=== PATIENT | male | born 1935 | race Caucasian/White ===

== ENCOUNTER 2018-06-27 09:53 | Inpatient (IN) | payer MEDICARE, BC ==
[~2018-06-27] VITALS: Ht 172.8 cm; Wt 91.0 kg
[~2018-06-27 09:53] MED LIST: COLESTID 1GM1 G PO; COUMADIN 22.5 MG/TAB PO; COUMADIN 5MG5 MG/TAB PO; FISH OIL500 MG PO; TAMBOCOR50 MG PO; [UNRECOGNIZED DRUG - REMARK]
[2018-07-14] VITALS (10 sets, daily range): BP systolic 105–160; BP diastolic 54–78; PULSE 60–86; TEMP 97–99.1
--- NOTE | 2018-07-14 06:11 | NUR ---
PT PREPPED FOR SURGERY. ADMITTED AMBULATORY TO ROOM 329. VSS, PATIENT TO SURGERY PER BED WITH
[2018-07-14 06:33] LABS: INR 1.1 (0.8-3.0); PROTHROMBIN TIME 12.5 SECONDS (9.7-12.8)
--- NOTE | 2018-07-14 11:38 | NUR ---
PATIENT TO ROOM 329 PER BED WITH REPORTFRMARGI WHALEN EXECUTOR OF ESTATE @1125. PT IS DROWSEY BUT AROUSEABLE. VSS LUNGS CLEAR. DRESSING TO LEFT HIP CDI WITH GAUZE AND MEDIPORE TAPE OVER INCISIOON. IV TO PUMP, SCDS AND TEDS BILATERALLY. PT DENIES PAIN.
--- NOTE | 2018-07-14 14:03 | NUR ---
SW met with patient, , and daughter about discharge planning. Patient lives independently at home with his and plans to return there upon discharge. Patient plans to receive outpatient PT in [place]. Patient's PCP is Dr Smith and he obtains prescriptions from the [place] or [facility]. Patient does not use any home health services or DME in the home. Patient will be seen by PT and OT. SW will review PT and OT notes for recommendations. SW will continue to follow and assist with discharge needs.
--- NOTE | 2018-07-14 15:45 | NUR ---
PT UP TO RECLINER WITH THERAPY THIS PM. BACK TO BED WITH SBA X1. PO PAIN MEDS AND 1 DOSE MORPHINE FOR PAIN CONTROLL, HAS BEEN SLEEPING THIS PM.
--- NOTE | 2018-07-14 19:05 | NUR ---
REPORT TO CALLUM VELEZ.
--- NOTE | 2018-07-14 21:00 | NUR ---
HS meds all reviewed and given along with norco for pain. Patient awake, alert and oriented x 4. Reports he feels like he can urinate. Up to the bathroom min 1 assist with chef kitchen manager and voids minimal amount. Bladder scan reads >200mls and moderate area of shading noted on scanner. Straight cath reviewed and done via sterile procedure without problems with 325mls slow yellow clear urine results. Fe care done before and after straight cath. Teds removed and reapplied.
--- NOTE | 2018-07-14 23:00 | NUR ---
Patient reports just achy pain now to left hip 5/10 and roxycodone 5mg given with jellow.
--- NOTE | 2018-07-15 00:30 | NUR ---
Patient rests with eyes closed. Respirations with ease.
--- NOTE | 2018-07-15 02:00 | NUR ---
Patient rests with eyes closed. Respirations with ease.
[2018-07-15 03:46] VITALS: BP 150/76; PULSE 91; TEMP 98.1
--- NOTE | 2018-07-15 05:38 | NUR ---
ENCOURAGED PATIENT TO GET UP TO THE BATHROOM ONCE PAIN MED TAKES EFFECT. REQUESTS ADDITIONAL PAIN MED AND ROXYCODONE 5MG GIVEN. NEW ICE PACK TO LEFT HIP.
[2018-07-15 07:28] LABS: HEMATOCRIT 38.7 % (42.0-52.0); HEMOGLOBIN 12.7 g/dl (13.5-18.0)
[2018-07-15 07:30] LABS: INR 1.2 (0.8-3.0); PROTHROMBIN TIME 13.7 SECONDS (9.7-12.8)
[2018-07-15 08:10] VITALS: BP 138/62; PULSE 82; TEMP 97.6
--- NOTE | 2018-07-15 10:45 | NUR ---
Initial visit; Patient thanked Avian Keeper for looking in on him and offering God's blessings.
[2018-07-15 12:06] VITALS: BP 149/67; PULSE 77; TEMP 98.3
[2018-07-15 16:13] VITALS: BP 150/66; PULSE 85; TEMP 97.4
--- NOTE | 2018-07-15 19:10 | NUR ---
Report received from Whit VELEZ. Patient sits up in recliner leg elevated. Several visitors in. Patient denies needs a this time.
[2018-07-15 20:45] VITALS: BP 171/67; PULSE 97; TEMP 98.8
--- NOTE | 2018-07-15 21:40 | NUR ---
HS meds along with norco for pain reviewed and given with mariama. Denies nausea at this time. Rests back in bed. Was up tonight and walked to the bathroom. BLE elevated on pillows. Ice back to left hip and aquacel CDI. SCD's on. Teds removed and reapplied.
[2018-07-15 23:16] VITALS: BP 138/74; PULSE 94; TEMP 199; TEMP 99
--- NOTE | 2018-07-16 01:31 | NUR ---
Patient required max assist with legs in and out of bed. Bed raised slightly to assist with standing. Ambulates to the bathroom and voids large amount clear yellow urine in urinal. Takes jello prior to roxycodone given for pain.
[2018-07-16 03:33] VITALS: BP 131/60; PULSE 91; TEMP 99.5
--- NOTE | 2018-07-16 05:04 | NUR ---
PATIENT RESTS WITH EYES CLOSED. RESPIRATIONS WITH EASE.
--- NOTE | 2018-07-16 06:45 | NUR ---
Reported on to ROSIE Sheehan.
--- NOTE | 2018-07-16 06:45 | NUR ---
bedside shfit report received from ROSIE Castillo
[2018-07-16 07:16] VITALS: BP 106/87; PULSE 87; TEMP 98.9
[2018-07-16 07:25] LABS: HEMATOCRIT 37.6 % (42.0-52.0); HEMOGLOBIN 12.6 g/dl (13.5-18.0)
[2018-07-16 07:31] LABS: INR 1.3 (0.8-3.0); PROTHROMBIN TIME 15.3 SECONDS (9.7-12.8)
--- NOTE | 2018-07-16 07:45 | NUR ---
Awake. AOx4. VSS. O2 sat was 89%, instructed to CDB, increased to 92%. Assessment as charted. C/O 3/10 dull left hip pain. No further complaints.
--- NOTE | 2018-07-16 08:30 | NUR ---
occupational therapy in to assist him with taking a shower
--- NOTE | 2018-07-16 09:06 | NUR ---
ambulated out to mohan with physical therapy for group exercises
--- NOTE | 2018-07-16 09:46 | NUR ---
ambulated back to room after therapy and into recliner, full assessment completed, have reviewed assessment completed by student and in agreement with that assessment
[2018-07-16 10:20] VITALS: BP 125/85; PULSE 86; TEMP 98.8
--- NOTE | 2018-07-16 10:29 | NUR ---
No complaints. VSS. Reported off to ROSIE Sheehan.
--- NOTE | 2018-07-16 11:26 | NUR ---
awake and up in chair, will order lunch soon
[2018-07-16 12:19] VITALS: BP 140/68; PULSE 86; TEMP 98.7
--- NOTE | 2018-07-16 12:20 | NUR ---
up in chair eating lunch and visiting with family
--- NOTE | 2018-07-16 13:09 | NUR ---
ambulated out to mohan with physical therapy for group exercises
--- NOTE | 2018-07-16 14:03 | NUR ---
ambulated back to room after therapy and into bed to rest
--- NOTE | 2018-07-16 15:00 | NUR ---
called nurse to room and stated he just started having terrible pain to left hip, "doesn't know what he did", assisted up and ambulated into bathroom and this helped some being up, out of bathroom and into recliner, medicated with hydrocodone 7.5mg 1 tab
[2018-07-16 15:29] VITALS: BP 132/54; PULSE 91; TEMP 99
--- NOTE | 2018-07-16 15:54 | NUR ---
remains sitting up in chair, states the pain pill is helping
--- NOTE | 2018-07-16 18:00 | NUR ---
resting in chair and states pain is ok now
--- NOTE | 2018-07-16 18:54 | NUR ---
bedside shift report given to ROSIE Castillo
[2018-07-16 20:44] VITALS: BP 126/60; PULSE 87; TEMP 98.3
--- NOTE | 2018-07-16 21:30 | NUR ---
HS meds along with norco for pain reviewed and given following patient taking cookie for snack. Patient alert and oriented x 4. Just returned from toileting and rests back in bed. Jesús hose removed and will reapply when up again. SCDs on. Declines HS care.
--- NOTE | 2018-07-16 23:00 | NUR ---
Patient rests with eyes closed. Respirations with ease.
--- NOTE | 2018-07-17 03:15 | NUR ---
Patient has been resting with eyes closed. Respirations with ease.
[2018-07-17 04:39] VITALS: BP 130/61; PULSE 86; TEMP 98.2
[2018-07-17 07:20] LABS: INR 1.4 (0.8-3.0); PROTHROMBIN TIME 15.8 SECONDS (9.7-12.8)
[2018-07-17] MEDS ORDERED: NORCO 325 MG-7.1 TAB PO (08:11)
[2018-07-17] MEDS ORDERED: ROXICODONE 55 MG/TAB PO (08:11)
[2018-07-17 08:51] VITALS: BP 139/57; PULSE 87; TEMP 97.8
[2018-07-17 12:27] VITALS: BP 129/56; PULSE 82; TEMP 99.1
--- NOTE | 2018-07-17 13:36 | NUR ---
Reported off to primary nurse, Whit RN at this time
--- NOTE | 2018-07-17 15:47 | NUR ---
PATIENT IS DISCHARGING HOME VIA WHEELCHAIR TO PERSONAL VEHICLE WITH FAMILY. GAVE DISCHARGE INSTRUCTIONS, PRESCRIPTIONS, AQUACEL & FOLLOW UP APTS. ANSWERED ALL QUESTIONS/CONCERNS. IV DC'D TO LEFT KIRA KENT & KRYSTAL APPLIED. PATIENT DISCHARGED.
--- NOTE | 2018-07-17 15:51 | NUR ---
Patient will discharge home today. SW presented IM to patient. He signed but did not request a copy.
== END 2018-07-17 15:50 | disposition home or self-care (01) | DRG 470 ==
LOC: JCC 07-14 05:09
PROVIDERS: ADMIT Orthopaedic Surgery
PROC: 0SRB0JA Replacement of Left Hip Joint with Synthetic Substitute, Uncemented, Open Approach (ICD-10-PCS; principal; 2018-07-14 07:30)
DX: M16.12 Unilateral primary osteoarthritis, left hip (principal); I42.0 Dilated cardiomyopathy; I48.0 Paroxysmal atrial fibrillation; E78.5 Hyperlipidemia, unspecified; Z79.01 Long term (current) use of anticoagulants
CPT/HCPCS: A9284; C1776; J0690; J2250; J2270; J2405; J2704; J7042; J7120

== ENCOUNTER → 2018-07-09 | Outpatient (CLI) | payer MEDICARE, BC | LOC: COL.LAB 10:56 | DX: Z01.812 Encounter for preprocedural laboratory examination (principal) ==

== ENCOUNTER → 2021-05-05 | Outpatient (CLI) | payer MEDICARE ==
[~2021-05-05] MED LIST changes: +NORCO 325 MG-7.1 TAB PO; +ROXICODONE 55 MG/TAB PO
== END ==
LOC: COL.RAD 11:49
DX: M48.061 Spinal stenosis, lumbar region without neurogenic claudication (principal); M47.816 Spondylosis without myelopathy or radiculopathy, lumbar region; Z98.890 Other specified postprocedural states
CPT/HCPCS: A9585

== ENCOUNTER 2023-02-24 03:44 | Observation (INO) | payer MEDICARE ==
[~2023-02-24] VITALS: Ht 172.7 cm; Wt 93.5 kg
[~2023-02-24 03:44] MED LIST changes: +EPA FISH OIL1 SGL PO; -FISH OIL500 MG PO
[2023-02-24] MEDS ORDERED: NORCO 325 MG-51 TAB PO (05:46)
[2023-02-24 07:56] LABS: COLLECTION METHOD CLEAN CATCH
[2023-02-24 08:01] LABS: PH 6.5 (5.0-8.5); URINE APPEARANCE Clear (CLEAR/HAZY); URINE BLOOD Negative (NEGATIVE); URINE COLOR Yellow (YELLOW); URINE GLUCOSE Negative (NEGATIVE); URINE KETONE 1+ (NEGATIVE); URINE NITRATE Negative (NEGATIVE); URINE PROTEIN(semi-quant) Negative (NEGATIVE); URINE UROBILINOGEN 0.2 E.U/dL (0.2-1.0)
[2023-02-24 08:07] LABS: MUCOUS Present (NOT PRESENT); SQUAMOUS EPITHELIAL 0-2 /hpf (0-10); URINE BACTERIA Rare /hpf (NONE SEEN); URINE RBC None Seen /hpf (0-2)
[2023-02-24 09:16] LABS: BASO # 0.1 K/mm3 (0.0-0.2); BASO % 0.7 % (0.0-2.0); EOS # 0.1 K/mm3 (0.0-0.7); EOS % 0.8 % (0.0-4.0); GRAN # 6.4 K/mm3 (1.4-6.5); GRAN % 75.3 % (42.2-75.2); HEMATOCRIT 40.8 % (42.0-52.0); HEMOGLOBIN 13.3 g/dl (13.5-18.0); LYMPH # 1.3 K/mm3 (1.2-3.4); LYMPH % 15.2 % (20.0-51.0); MEAN CELL VOLUME 99 fl (80.0-100.0); MEAN CORPUSCULAR HEMOGLOBIN 32 pg (27-31); MEAN CORPUSCULAR HGB CONC 33 g/dl (33.0-37.0); MONO # 0.7 K/mm3 (0.1-0.6); MONO % 7.8 % (1.7-9.3); PLATELET COUNT 228 K/mm3 (130-400); RED BLOOD COUNT 4.11 M/mm3 (4.20-5.60); REDCELL DISTRIBUTION WIDTH-CV 13.6 % (11.5-14.5)
[2023-02-24 09:24] LABS: INR 3.7 (0.8-3.0); PROTHROMBIN TIME 38.9 SECONDS (9.7-12.8)
[2023-02-24 09:35] LABS: ALBUMIN 3.4 gm/dL (3.4-4.8); BILIRUBIN,TOTAL 1.4 mg/dL (0.2-1.2); CREATININE, serum 0.82 mg/dL (0.72-1.25); POTASSIUM 4.5 mmol/L (3.5-4.5); TOTAL PROTEIN 6.9 gm/dL (6.2-8.1)
[2023-02-24] MEDS ORDERED: ASPIRIN E.C. 8181 MG PO (11:30)
[2023-02-24] MEDS ORDERED: ULTRAM 50MG TAB50 MG PO (11:30)
[2023-02-24] MEDS ORDERED: COUMADIN 5MG5 MG/TAB PO (11:31)
--- NOTE | 2023-02-24 11:40 | NUR ---
Patient to room 315 from the ED by wheelchair. Patient A&Ox4. VSS BP hypertensive. IV CDI. Patient SB assist from the wheelchair to the bed. Nurse oriented the patient to location, call light and room. Son at the bedside. No further needs expressed. Call light within reach
[2023-02-24 11:51] VITALS: BP 175/82; PULSE 73; TEMP 97.9
[2023-02-24 12:39] VITALS: BP_SYST 175
[2023-02-24 15:19] VITALS: BP 146/65; PULSE 65; TEMP 98.3
[2023-02-24 15:19] LABS: HEMATOCRIT 39.4 % (42.0-52.0); HEMOGLOBIN 13.3 g/dl (13.5-18.0)
[2023-02-24 19:02] VITALS: BP 161/69; PULSE 67; TEMP 98.1
--- NOTE | 2023-02-24 20:30 | NUR ---
Patient resting in bed. Denies any pain or needs at this time. Assessment complete. IV in right AC flushes easily with no complications. Call light and personal items in reach. Bed in low position and bed alarm on.
[2023-02-24 21:00] VITALS: BP_SYST 161
[2023-02-24 23:15] VITALS: BP 171/85; PULSE 75; TEMP 98
[2023-02-25] VITALS (12 sets, daily range): BP systolic 76–175; BP diastolic 64–88; PULSE 65–76; TEMP 98.1–99.2
--- NOTE | 2023-02-25 06:15 | NUR ---
Patient sitting on edge of bed. Rates his pain in his left hip a 6/10, pain med given. Denies any other pain at this time. Assisted patient back to bed and put ice pack back on left hip. Denies any other needs this morning. Call light and personal items in reach. Bed in low positon and bed alarm on.
[2023-02-25 06:43] LABS: BASO % 0.4 % (0.0-2.0); EOS # 0.1 K/mm3 (0.0-0.7); EOS % 1.2 % (0.0-4.0); GRAN # 6.3 K/mm3 (1.4-6.5); HEMATOCRIT 43.3 % (42.0-52.0); LYMPH # 1.6 K/mm3 (1.2-3.4); LYMPH % 17.3 % (20.0-51.0); MEAN CORPUSCULAR HEMOGLOBIN 33 pg (27-31); MEAN CORPUSCULAR HGB CONC 35 g/dl (33.0-37.0); MONO # 0.9 K/mm3 (0.1-0.6); MONO % 9.9 % (1.7-9.3); PLATELET COUNT 271 K/mm3 (130-400); RED BLOOD COUNT 4.59 M/mm3 (4.20-5.60); REDCELL DISTRIBUTION WIDTH-CV 13.3 % (11.5-14.5)
[2023-02-25 06:44] LABS: MEAN CELL VOLUME 94 fl (80.0-100.0)
[2023-02-25 07:11] LABS: ALBUMIN 3.7 gm/dL (3.4-4.8); CALCIUM 9.2 mg/dL (8.4-10.2); CREATININE, serum 0.94 mg/dL (0.72-1.25); MAGNESIUM 1.9 mg/dL (1.6-2.6); PHOSPHOROUS 2.2 mg/dL (2.3-4.7)
[2023-02-25 10:24] LABS: INR 4.1 (0.8-3.0); PROTHROMBIN TIME 42.8 SECONDS (9.7-12.8)
--- NOTE | 2023-02-25 10:39 | NUR ---
patient prn given for pain. previous dose removed from pexus was returned because it was not given do to being too early to give.
--- NOTE | 2023-02-25 10:54 | NUR ---
NOTIFIED DOCTOR ABOUT PATIENT BEING AFIB RHYTHM.
--- NOTE | 2023-02-25 14:00 | NUR ---
Park Interpretive Specialist met with patient to discuss discharge planning. Patient's son, Cipriano is at bedside. Patient lives near [place], [place] and sees Dr. Smith for primary care. Patient obtains medications from [facility]. Patient has a cane, walker, and wheelchair available at home. SW discussed recommendation for Home Health and provided Medicare.gov list of HH agencies. Patient stated he has used [facility] in the past for his late , Gemma. Patient is unsure if he wants HH services or not. Patient's son, Cipriano does not think patient will be open to services at this time. SW encouraged patient to let her know what he decides. Patient has DPOA-HC in EMR that designates his daughter, Xochilt (ph#[phone]) and son, Slade (ph#[phone]). Patient plans to return home at time of discharge. Discharge Plan: Home
--- NOTE | 2023-02-25 17:20 | NUR ---
TECH CALLED REPORT WITH RN PRIOR TO COMING TO UNIT. TECH ARRIVED TO PATIENT'S ROOM TO TRANSPORT TO CT. PT'S FAMILY WAS AT BEDSIDE AND QUESTIONED ORDER. PT'S FAMILY STATES THE INDICATION DOES NOT MAKE SENSE AND THAT THE PATIENT IS EXTREMELY HARD OF HEARING AND WAS NOT ANSWERING PHYSICIAN'S QUESTIONS APPROPRIATELY DUE TO HEARING IMPAIRMENT. PT AND FAMILY REQUEST TO SPEAK TO THE PHYSICIAN AGAIN PRIOR TO PROCEEDING WITH CT. RN, ADA INFORMED. RN WILL CALL IF EXAM IS STILL INDICATED AFTER PT AND FAMILY DISCUSS WITH DR. BRICE. EXAM ON HOLD AT THIS TIME.
--- NOTE | 2023-02-25 17:47 | NUR ---
PATIENT AND FAMILY REFUSED TO DO A HEAD CT ORDER BY DOCTOR. DOCTOR WAS NOTIFIED OF THIS.
--- NOTE | 2023-02-25 19:44 | NUR ---
Alerted by pct Lisa of low systolic bp of 74. Recheck manually by charge nurse, Manuela- 108/58- wnl-left arm.
--- NOTE | 2023-02-25 20:00 | NUR ---
UPON SHIFT ASSESSMENT, PATIENT'S DAUGHTER WAS BEDSIDE WITH QUESTIONS ABOUT HEAD CT STATING, "WE DIDN'T REFUSE A HEAD CT, WE JUST WEREN'T GIVEN A REASON FOR IT." THIS NURSE PROVIDED EDUCATION ABOUT RECENT FALL, AMS AND INR INCREASE ARE ALL RISK FACTORS FOR BRAIN BLEED OR STROKE. DAUGHTER EXHIBITED GOOD UNDERSTANDING AND STATED WILL SEEK MORE INFO FROM DOCTOR IN THE MORNING. PERFORMED NEURO CHECK AND LEIGHANN WAS AXO X 3, EQUAL HAND AND LOWER EXTREMITY STRENGTH AND EYES PERRLA. DENIES CHEST PAIN AND SOA. IV SITE WAS NOTED TO HAVE BLEEDING UNDER TEGADERM AND INSPECTION REVEALED DISLODGED IV CATHETER. NEW 22 G BD WAS STARTED IN RT FOREARM. VSS WNL, CALL LIGHT WITHIN REACH, BED ALARM ON.
--- NOTE | 2023-02-25 20:23 | NUR ---
CALL PLACED TO HOSPITALIST TO INQUIRE IF HOLD WILL BE PLACED ON TAMBACOR PER CARIOLOGIST'S-'S CONSULT NOTES. AWAITING FURTHER INSTRUCTIONS [id number] NOTES.
--- NOTE | 2023-02-25 21:51 | NUR ---
RECIEVED CALL FROM TELE-PATIENT CONVERTED TO NS LBB
[2023-02-26] VITALS (7 sets, daily range): BP systolic 118–129; BP diastolic 65–68; PULSE 64–72; TEMP 97.8–99.2
[2023-02-26 06:53] LABS: BASO % 0.4 % (0.0-2.0); EOS # 0.1 K/mm3 (0.0-0.7); EOS % 0.8 % (0.0-4.0); GRAN # 7.1 K/mm3 (1.4-6.5); GRAN % 72.6 % (42.2-75.2); HEMATOCRIT 38.4 % (42.0-52.0); LYMPH # 1.5 K/mm3 (1.2-3.4); LYMPH % 14.9 % (20.0-51.0); MEAN CELL VOLUME 95 fl (80.0-100.0); MEAN CORPUSCULAR HEMOGLOBIN 32 pg (27-31); MEAN CORPUSCULAR HGB CONC 34 g/dl (33.0-37.0); MEAN PLATELET VOLUME 10.9 fl (7.4-10.4); MONO # 1.1 K/mm3 (0.1-0.6); PLATELET COUNT 267 K/mm3 (130-400); RED BLOOD COUNT 4.03 M/mm3 (4.20-5.60); REDCELL DISTRIBUTION WIDTH-CV 13.4 % (11.5-14.5)
[2023-02-26 07:01] LABS: INR 3.4 (0.8-3.0); PROTHROMBIN TIME 35.6 SECONDS (9.7-12.8)
[2023-02-26 07:15] LABS: ALBUMIN 3.2 gm/dL (3.4-4.8); CALCIUM 8.7 mg/dL (8.4-10.2); CREATININE, serum 0.87 mg/dL (0.72-1.25); MAGNESIUM 1.9 mg/dL (1.6-2.6); PHOSPHOROUS 2.5 mg/dL (2.3-4.7); POTASSIUM 3.8 mmol/L (3.5-4.5)
--- NOTE | 2023-02-26 07:58 | NUR ---
LEIGHANN CONVERTED TO NS WITH LBBB DURING THE NIGHT AND COMPLAINED OF LT HIP PAIN AND RT FOOT "FALLING ASLEEP". PRN NORCO WAS GIVEN, AND LAST ASSESSMENT, LEIGHANN WAS SLEEPING COMFORTABLY. VSS ARE WNL CURRENTLY. CALL LIGHT WITHIN REACH BED ALARM ON.
--- NOTE | 2023-02-26 08:00 | NUR ---
Assessment completed. Pt resting in bed. Telemetry on. HR regular. INT in right forearm. Pt denies c/o pain at this time. Call light and personal items in reach. Bed alarm on and in lowest position.
--- NOTE | 2023-02-26 09:15 | NUR ---
DAMARIS FLORENTINO NOTIFIED OF HEMOGLOBIN DROP FROM 15 TO 13 THIS AM. NOTIFED THIS NURSE HELD AMLODAPINE THIS AM FOR A BP OF 118/65. PT REQUESTING A STOOL SOFTENER.
--- NOTE | 2023-02-26 09:20 | NUR ---
PT RESTING IN BED WITH PAIN 2/1O LOCATED "EVERYWHERE". LEFT HIP WITH NO VISIBLE BRUSING, TENDER TO THE TOUCH. PT STATES NO BM IN SEVERAL DAYS, NO PASSING GAS, AND ABDOMINAL TENDERNESS. WILL CONTINUE TO MONITOR.
[2023-02-26] MEDS ORDERED: TAMBOCOR 1100 MG/TAB PO ×2 (09:49→09:52)
[2023-02-26] MEDS ORDERED: NORCO 325 MG-51 TAB PO (10:03)
--- NOTE | 2023-02-26 10:19 | NUR ---
Initial visit; Patient and his daughter thanked Per Diem Rn for looking in on him and after learning Adalberto was awaiting some test results and perhaps other tests, it was agreed upon for Per Diem Rn to keep him in Per Diem Rn's prayers for answers to tests and a plan for recovery. Per Diem Rn wished Adalberto well and offered God's blessings.
--- NOTE | 2023-02-26 12:06 | NUR ---
DISCHARGE EDUCATION PROVIDED. DISCUSSED FOLLOW UP APPOINTMENTS, NEW MEDICATIONS, CHANGES TO HOME MEDS. NO QUESTIONS AT THIS TIME. PT AND BELONGINGS ESCORTED OUT OF BUILDING BY WHEELCHAIR AT THIS TIME.
--- NOTE | 2023-02-26 15:10 | NUR ---
Provider Service Representative met with patient and his daughter, Kari to review discharge plan. Patient would like to get set up with Home Health and chose to use [facility] out of [place]. SW contacted [facility] and faxed referral with discharge orders. Katherine at [facility] advised they can accept patient. Discharge Plan: Home with [facility]
== END 2023-02-26 11:55 | disposition home or self-care (01) ==
LOC: COL.ER 03:44 → MEDICAL 11:07
PROVIDERS: Emergency Medicine; Physician Assistant; ADMIT Internal Medicine
DX: S70.02XA Contusion of left hip, initial encounter (principal); I48.91 Unspecified atrial fibrillation; E87.1 Hypo-osmolality and hyponatremia; R03.0 Elevated blood-pressure reading, without diagnosis of hypertension; R41.82 Altered mental status, unspecified; M54.50 Low back pain, unspecified; M79.605 Pain in left leg; Z79.01 Long term (current) use of anticoagulants; W19.XXXA Unspecified fall, initial encounter; Y93.9 Activity, unspecified; I34.0 Nonrheumatic mitral (valve) insufficiency
CPT/HCPCS: G0378; J1170; J2270; Q9967